=== PATIENT | male | born 1990 | race Caucasian/White ===

== ENCOUNTER 2016-04-04 16:54 | Emergency (ER) | payer SELFPAY ==
[2016-04-04 17:23] VITALS: BP 113/66
[2016-04-04] MEDS ORDERED: traMADol TAB* 50 MG PO ONE (17:35)
[2016-04-04] MEDS ORDERED: LORazepam TAB(*) 1 MG PO ONE (17:37)
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
== END 2016-04-04 18:11 | disposition left against medical advice (07) ==
LOC: ED 16:54
DX: R61 Generalized hyperhidrosis (principal); S50.01XA Contusion of right elbow, initial encounter; S80.01XA Contusion of right knee, initial encounter; R68.84 Jaw pain; R55 Syncope and collapse; K08.89 Other specified disorders of teeth and supporting structures; Y09 Assault by unspecified means; Y93.9 Activity, unspecified; Y92.9 Unspecified place or not applicable; Y99.9 Unspecified external cause status
CPT/HCPCS: 99282; A9270-GY

== ENCOUNTER 2016-04-04 20:57 | Emergency (ER) | payer SELFPAY ==
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
--- NOTE | 2016-04-04 22:48 | RAD ---
indication: Left JAW pain and altered mental status. Positive EtOH. COMPARISON: None A CT scan of the brain and and maxillofacial bones was performed without intravenous contrast enhancement. Contiguous axial sections were obtained from the lower cervical spine through the cranial vertex. BRAIN: The ventricles, cisterns and sulci are within normal limits. No significant focal abnormality or mass effect is seen. The novoa-white differentiation is adequately maintained. There is no evidence for intracranial hemorrhage. No significant bony abnormality is present. The mastoid air cells are appropriately aerated. FACIAL BONES: Bones: There is no displaced fracture or dislocation. The orbital rim is intact. The zygomatic arch is intact. The pterygoid plates are intact Orbits: The globes are round. The optic nerves are symmetric. The extraocular musculature is normal. There is no post septal or intraconal inflammatory change. There is no retrobulbar hematoma. Paranasal Sinuses: There is mild mucosal thickening of the right maxillary sinus. IMPRESSION: 1. No calvarial fracture or acute intracranial hemorrhage. 2. No facial bone fractures.
[2016-04-04] MEDS ORDERED: Acetaminophen TAB* 325 MG PO ONE (23:27)
[2016-04-04 23:37] VITALS: BP 120/69
== END 2016-04-04 23:35 | disposition home or self-care (01) ==
LOC: ED 20:57
DX: R51 Headache (principal); K08.89 Other specified disorders of teeth and supporting structures; F17.210 Nicotine dependence, cigarettes, uncomplicated
CPT/HCPCS: 36415; 70450; 70486; 80320; 99283; A9270-GY; G0480

== ENCOUNTER 2016-09-20 04:35 | Emergency (ER) | payer OTHER ==
[2016-09-20 05:44] VITALS: BP 128/81
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
== END 2016-09-20 05:43 | disposition home or self-care (01) ==
LOC: ED 04:35
DX: S60.221A Contusion of right hand, initial encounter (principal); W22.01XA Walked into wall, initial encounter; Y93.9 Activity, unspecified; Y92.9 Unspecified place or not applicable; F17.210 Nicotine dependence, cigarettes, uncomplicated
CPT/HCPCS: 99282